=== PATIENT | female | born 1955 | race Caucasian/White ===

== ENCOUNTER → 2016-03-14 | Outpatient (CLI) | payer BC ==
[~2016-03-14] MED LIST: AGM500T PO; AZIT250T81 PO; PRED20TA PO; TBR.3OP51 OD
[2016-03-15 10:58] VITALS: BP 142/85
--- NOTE | 2016-03-15 10:58 | Urgent Care T Sheet Gen (E) ---
Intake General Temperature (Fahrenheit): 98.6 Pulse: 76 Blood Pressure Systolic: 142 Blood Pressure Diastolic: 85 Respirations: 20 SPO2: 99 Description of Symptoms Patient presents with illness since Friday. States she lost her voice. Nasal congestion, R ear pain and sore throat started that time as well. No fever. Was just treated with Amoxicillin several weeks ago. 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 History of Present Illness Home Meds Active Scripts Tobramycin Sulf (Tobrex 0.3% Ophthalmic Solution)5 Ml Soln2 Drops OD QID #1 BTL Instil 2 drops in R eye QID x 7 days Prov:BETHANY BROWN 02/27/16 Amoxicillin/Clavulanate Potassium (Augmentin 500mg/125mg)1 Each Tablet1 Each PO BID Infection #20 TAB Ref 0 Prov:BETHANY BROWN 02/27/16 Prednisone 20 Mg [id number] Mg PO BID #6 TAB Prov:BETHANY BROWN 12/29/15 Azithromycin (Zithromax Z-Liban)6 Tab/Pkt [id number] Mg PO SEE INSTRUCTIONS #6 TAB Ref 0 Day One: Take 2 tablets by mouth Days Two-Five: Take 1 tablet by mouth Prov:BETHANY BROWN 12/29/15 Respiratory Constitutional Symptoms: Malaise EENTM: Nose Congestion Throat pain Respiratory: No symptoms reported Cardiovascular: No symptoms reported Gastrointestinal/Abdominal: No symptoms reported All Other Systems Reviewed Remaining Systems: All other systems reviewed with negative findings Physical Exam Physical Exam General Appearance: WD/WN No apparent distress Eyes, Ears, Nose, Throat Ex: TMs normal Pharynx normal Other (loss of voice. clear nasal drainage without nasal congestion.) Neck Exam: SuppleNo Lymphadenopathy Respiratory Exam: Lungs clear Normal breath sounds Cardiovascular Exam: Regular rate, rhythm Departure Urgent Care Impression Impression: Primary Impression: URI (upper respiratory infection) Qualified Code: J00 - Acute nasopharyngitis [common cold] Departure Disposition: HOME OR SELF-CARE Condition: Stable Referrals: Jero Rico DO (PCP) Additional Instructions: Long discussion with patient regarding her symptoms. She appears to have a viral URI. Explained to her that almost always when people lose their voice, it's due to a virus. 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 States she had perfect attendance with [employer] for 17 years prior to starting this job. States the kids are constantly sick and she seems to catch every cold they have. Explained that antibiotics won't help her illness however I did offer to prescribe a medrol dose pack to help with the runny nose, sore throat, etc. She agreed. As far as preventing any future illness, all I can suggest is good handwashing, Lysol common areas, stay hydrated and take good care of herself. Return as needed Patient understands DC instructions. All questions were answered. End of report . BETHANY BROWN Mar 15, 2016 10:58
== END ==
LOC: MHUC 17:34
PROVIDERS: ATTEND Physician Assistant
DX: J00 Acute nasopharyngitis [common cold] (principal)
CPT/HCPCS: 99213